=== PATIENT | male | born 1980 | race Caucasian/White ===

== ENCOUNTER 2018-10-21 06:55 | Emergency (ER) | payer OTHER ==
[2018-10-21 07:26] VITALS: BMI 37.3
[2018-10-21 07:31] VITALS: RESP 18; TEMP 98.6; O2SAT 99
--- NOTE | 2018-10-21 08:16 | ED PDOC ---
Arrival/HPI - General Chief Complaint: GI Problem Time Seen by Provider: 10/21/18 07:27 Historian: Patient - History of Present Illness Narrative History of Present Illness (Text): 10/21/18 08:16 38 year old male, with past medical history of hemorrhoids presents to the ED for evaluation of rectal pain since 12 am this morning. Patient reports recurrent hemorrhoids which were treated with external cream in the past. Patient denies any other associated somatic complaints. He denies any constipation, bloody stool, abdominal pain or fever. Time/Duration: 4-6 hours Symptom Onset: Gradual Symptom Course: Unchanged Activities at Onset: Light Context: Home Past Medical History - Provider Review Nursing Documentation Reviewed: Yes - Infectious Disease Hx of Infectious Diseases: None - Cardiac Hx Cardiac Disorders: No - Pulmonary Hx Respiratory Disorders: No - Neurological Hx Neurological Disorder: No - HEENT Hx HEENT Disorder: No - Renal Hx Renal Disorder: No - Endocrine/Metabolic Hx Hypothyroidism: Yes - Hematological/Oncological Hx Blood Disorders: No - Integumentary Hx Dermatological Disorder: No - Musculoskeletal/Rheumatological Hx Musculoskeletal Disorders: No - Gastrointestinal Hx Gastrointestinal Disorders: No Other/Comment: Hemorrhoids - Psychiatric Hx Psychophysiologic Disorder: No Hx Substance Use: No - Anesthesia Hx Anesthesia: No - Suicidal Assessment Feels Threatened In Home Enviroment: No Family/Social History - Physician Review Nursing Documentation Reviewed: Yes Family/Social History: Unknown Family HX Smoking Status: Smoker Currrent Status Unknown Hx Alcohol Use: Yes Hx Substance Use: No Allergies/Home Meds Allergies/Adverse Reactions: Allergies Unobtainable Allergy (Verified 03/13/15 14:23) Review of Systems - Physician Review All systems were reviewed & negative as marked: Yes - Review of Systems Constitutional: absent: Fevers Respiratory: absent: SOB, Cough Cardiovascular: absent: Chest Pain, ORTIZ Gastrointestinal: Other (Hemorrhoids). absent: Abdominal Pain, Stool Changes, Constipation, Diarrhea, Nausea, Vomiting Genitourinary Male: absent: Dysuria, Urinary Output Changes Musculoskeletal: absent: Back Pain, Neck Pain Skin: absent: Rash Neurological: absent: Headache, Dizziness, Focal Weakness Psychiatric: absent: Anxiety Physical Exam - Physical Exam Narrative Physical Exam (Text): 10/21/18 08:19 Gen: VS reviewed, alert, well developed, well nourished, nontoxic, mild distress. ENT: normal pharynx. Eye: EOMI, PERRL. Neck: no JVD, supple, no adenopathy. CV: regular rate, regular rhythm, no rubs, no murmur, no gallops, S1, S2, pulses equal and strong. Pulm: no distress, clear to auscultation, no wheeze, no rhonchi, breath sounds equal, no rales. Abd: soft, nontender, no guarding, no rebound, no rigidity, normal bowel sounds. Rectal: Small, very tender nodule at the anal verge at the 3 o'clock position. Large nontender external hemorrhoid at the 9 o'clock position. Ext: no edema. Skin: good color, no rash, no cyanosis. Psych: responds appropriately to questions, normal affect. Neuro: oriented x 3, CN2-12 intact grossly, motor intact, sensation intact. Vital Signs Reviewed: Yes Vital Signs Temp Pulse Resp BP Pulse Ox 10/21/18 07:26 98.6 F 80 18 153/85 H 99 Temperature: Afebrile Blood Pressure: Normal Pulse: Regular Respiratory Rate: Normal Appearance: Positive for: Well-Appearing, Non-Toxic, Comfortable Pain Distress: Mild Mental Status: Positive for: Alert and Oriented X 3 Medical Decision Making ED Course and Treatment: 10/21/18 08:20 Impression: 38 year old male presents to the ED for evaluation of rectal pain. Plan: -- Surgical consult -- Reassess and disposition Prior Visits: Notes and results from previous visits were reviewed. Progress Notes: 10/21/18 08:21 Discussed case with neurosurgical physician assistant internal audit consultant, who is aware and will evaluate patient at bedside. 10/21/18 09:00 Patient evaluated by neurosurgical physician assistant at bedside, recommends conservative treatment for anal fissure and follow up with general surgery with Dr. Edge. - Scribe Statement The provider has reviewed the documentation as recorded by the Scribe Holli Bernal. All medical record entries made by the Scribe were at my direction and personally dictated by me. I have reviewed the chart and agree that the record accurately reflects my personal performance of the history, physical exam, medical decision making, and the department course for this patient. I have also personally directed, reviewed, and agree with the discharge instructions and disposition. Disposition/Present on Arrival - Present on Arrival Any Indicators Present on Arrival: No History of DVT/PE: No History of Uncontrolled Diabetes: No Urinary Catheter: No History of Decub. Ulcer: No History Surgical Site Infection Following: None - Disposition Have Diagnosis and Disposition been Completed?: Yes Diagnosis: Anal fissure Disposition: HOME/ ROUTINE Disposition Time: 09:38 Patient Plan: Discharge Patient Problems: Current Active Problems Problem Status Onset Anal fissure Acute Condition: STABLE Discharge Instructions (ExitCare): Anal Fissure Additional Instructions: you must follow up with the surgeon-call today to make an appointment. Prescriptions: Hydrocortisone [Procto-Med Hc] 30 gm RC BID #1 cream.appl Sennosides/Docusate Sodium [Colace 2-in-1 Tablet] 2 each PO BID 7 Days #14 tablet Referrals: Jeremy Villasenor MD [Primary Care Provider] - Follow up with primary Forms: [employer] (Slovak), WORK NOTE
--- NOTE | 2018-10-21 09:16 | CP.PCM.CON ---
History of Present Illness - History of Present Illness History of Present Illness: Andreaperezpaco Willsmarizol PGY1 Consult Note for Dr. Edge Pt is a 38yo M with PMH hypothyroidism and hemorrhoids presenting for worsening rectal pain since midnight. He reports having hemorrhoids on and off for the past year, which are usually alleviated with warm baths and unspecified cream. Pt reports recurrence of hemorrhoid last week and worsening of pain overnight. He reports small amount of blood in his last bowel movement. He rates the pain 8/10. He says the warm baths and cream have not relieved his pain this week. He denies fever, chills, abdominal pain, nausea, vomiting, diarrhea. PMH: hypothyroid SxH: partial thyroidectomy 2009 FamH: father - thyroid mass SocH: 10 pack year tobacco use, denies etoh or recreational drug use Meds: synthroid PMD: [place] Review of Systems - Constitutional Constitutional: absent: Chills, Fever - EENT Eyes: absent: Blurred Vision Nose/Mouth/Throat: absent: Nasal Congestion - Cardiovascular Cardiovascular: absent: Chest Pain - Respiratory Respiratory: absent: Dyspnea - Gastrointestinal Gastrointestinal: absent: Abdominal Pain, Diarrhea, Nausea, Vomiting - Musculoskeletal Musculoskeletal: absent: Numbness, Tingling - Integumentary Integumentary: Lesions - Neurological Neurological: absent: Dizziness Past Patient History - Infectious Disease Hx of Infectious Diseases: None - Past Social History Smoking Status: Smoker Currrent Status Unknown - CARDIAC Hx Cardiac Disorders: No - PULMONARY Hx Respiratory Disorders: No - NEUROLOGICAL Hx Neurological Disorder: No - HEENT Hx HEENT Problems: No - RENAL Hx Chronic Kidney Disease: No - ENDOCRINE/METABOLIC Hx Hypothyroidism: Yes - HEMATOLOGICAL/ONCOLOGICAL Hx Blood Disorders: No - INTEGUMENTARY Hx Dermatological Problems: No - MUSCULOSKELETAL/RHEUMATOLOGICAL Hx Musculoskeletal Disorders: No - GASTROINTESTINAL Hx Gastrointestinal Disorders: No Other/Comment: Hemorrhoids - PSYCHIATRIC Hx Psychophysiologic Disorder: No Hx Substance Use: No - SURGICAL HISTORY Hx Surgeries: No - ANESTHESIA Hx Anesthesia: No Meds Allergies/Adverse Reactions: Allergies Allergy/AdvReac Type Severity Reaction Status Date / Time Unobtainable Allergy Verified 03/13/15 14:23 Physical Exam - Constitutional Appears: Well, No Acute Distress - Head Exam Head Exam: ATRAUMATIC, NORMOCEPHALIC - Eye Exam Eye Exam: EOMI, Normal appearance - ENT Exam ENT Exam: Mucous Membranes Moist - Neck Exam Additional comments: throidectomy scar well healed - Respiratory Exam Respiratory Exam: NORMAL BREATHING PATTERN. absent: Respiratory Distress - GI/Abdominal Exam GI & Abdominal Exam: Soft. absent: Distended, Firm, Tenderness - Rectal Exam Additional comments: 2 cm external hemorrhoid non thrombosed in 10 oclock position rectal fissure in 11 oclock position with no overt bleeding noted exquisite tenderness to palpation of rectum Results - Vital Signs Recent Vital Signs: Last Vital Signs Temp 98.6 F 10/21/18 07:26 Pulse 80 10/21/18 07:26 Resp 18 10/21/18 07:26 BP 153/85 H 10/21/18 07:26 Pulse Ox 99 10/21/18 07:26 Assessment & Plan - Assessment and Plan (Free Text) Assessment: 38yo M with PMH hypothyroidism and hemorrhoids presenting for worsening rectal pain, likely anal fissure. Plan: - patient with anal fissure and external hemorrhoid - recommending PO stool softeners, sitz baths, topical lidocaine gel for pain control - recommending ample PO hydration and diet rich in fiber - if conservative measures fail, recommending follow up with Dr. Edge in 1-2 weeks for surgical evaluation further recommendations as per Dr. Edge
[2018-10-21 10:11] VITALS: BP 110/75; PULSE 72
== END 2018-10-21 10:15 | disposition home or self-care (01) ==
LOC: ED 06:55
DX: K60.2 Anal fissure, unspecified (principal)